=== PATIENT | male | born 1945 ===

== ENCOUNTER 2017-09-29 13:19 | Emergency (ER) | payer MEDICARE ==
[2017-09-29 13:20] VITALS: BMI 32.1
[2017-09-29 13:40] VITALS: RESP 18
--- NOTE | 2017-09-29 14:37 | ED PDOC ---
HPI: Abdomen Time Seen by Provider: 09/29/17 14:17 Chief Complaint (Nursing): GI Problem Chief Complaint (Provider): GI Problem History Per: Patient History/Exam Limitations: no limitations Onset/Duration Of Symptoms: Days (x8) Current Symptoms Are (Timing): Still Present Additional Complaint(s): 71 year old male with medical history of hypertension, hypercholesterolemia and diabetes, presents to the emergency department with a complaint of upper and periumbilical abdominal pain associated with lightheadedness and 10+ episodes of diarrhea throughout the day and night ongoing for 8 days. He denied any fever , chills, decreased appetite or bloody stools. Patient stated he used Imodium at home with no alleviation. Of note, colonoscopy was performed 5 years with negative findings. PMD: Kelton Gill MD Past Medical History Reviewed: Historical Data, Nursing Documentation, Vital Signs Vital Signs: Last Vital Signs Temp 97 F L 09/29/17 13:35 Pulse 61 09/29/17 13:35 Resp 18 09/29/17 13:35 BP 142/89 09/29/17 13:35 Pulse Ox 100 09/29/17 16:29 - Medical History PMH: Arthritis, Benign Prostatic Hyperplasia, Diabetes, Gall Bladder Disease, HTN, Hypercholesterolemia, TIA Denies: Asthma, Bronchitis, HIV, Chronic Kidney Disease - Surgical History Surgical History: Endoscopy Denies: No Surg Hx Other surgeries: prostate cancer - Family History Family History: States: CAD, Diabetes - Social History Current smoker - smoking cessation education provided: No Alcohol: Occasional Drugs: Denies - Home Medications Home Medications: Ambulatory Orders Medication Instructions Recorded Aspirin [Aspirin EC] 81 mg PO DAILY 02/14/15 Fenofibrate Nanocrystallized 145 mg PO DAILY 02/14/15 [Fenofibrate] Latanoprost [Xalatan] 1 drop EACHEYE HS 02/14/15 Lisinopril 20 mg PO DAILY 09/10/15 Metformin HCl [Glucophage] 500 mg PO DAILY 09/10/15 Tamsulosin HCl [Flomax] 0.4 mg PO DAILY 09/10/15 Atenolol [Tenormin] 50 mg PO DAILY 04/24/16 Omeprazole 20 mg PO DAILY 04/24/16 Oxybutynin Chloride [Ditropan Xl] 5 mg PO DAILY 04/24/16 Sucralfate [Carafate] 1 gm PO QID 04/24/16 Ciprofloxacin [Cipro] 1 tab PO BID #14 tab 09/29/17 Dicyclomine [Bentyl] 20 mg PO BID PRN #30 tab 09/29/17 Saccharomyces Boulardi [Florastor] 500 mg PO BID #28 cap 09/29/17 metroNIDAZOLE [Flagyl] 500 mg PO TID #30 tab 09/29/17 - Allergies Allergies/Adverse Reactions: Allergies Allergy/AdvReac Type Severity Reaction Status Date / Time No Known Allergies Allergy Verified 04/24/16 08:53 Review of Systems ROS Statement: Except As Marked, All Systems Reviewed And Found Negative Constitutional: Negative for: Fever, Chills Gastrointestinal: Positive for: Abdominal Pain (epigastric and periumbilical), Diarrhea. Negative for: Hematochezia, Other (decreased appetite) Neurological: Positive for: Dizziness (lightheaded) Physical Exam - Reviewed Nursing Documentation Reviewed: Yes Vital Signs Reviewed: Yes - Physical Exam Appears: Positive for: Non-toxic, No Acute Distress Head Exam: Positive for: ATRAUMATIC, NORMOCEPHALIC Skin: Positive for: Warm, Dry Eye Exam: Positive for: EOMI, PERRL ENT: Negative for: Pharyngeal Erythema, Tonsillar Exudate Neck: Positive for: Painless ROM, Supple Cardiovascular/Chest: Positive for: Regular Rate, Rhythm. Negative for: Murmur Respiratory: Positive for: Normal Breath Sounds. Negative for: Respiratory Distress Gastrointestinal/Abdominal: Positive for: Bowel Sounds (hyperactive), Tenderness (epigatric and lower quadrants on palpation). Negative for: Mass, Distended, Guarding, Rebound Back: Positive for: Normal Inspection. Negative for: Decreased ROM Extremity: Positive for: Normal ROM. Negative for: Deformity Lymphatic: Negative for: Adenopathy Neurologic/Psych: Positive for: Alert. Negative for: Motor/Sensory Deficits - Laboratory Results Result Diagrams: 09/29/17 15:00 09/29/17 15:00 - ECG O2 Sat by Pulse Oximetry: 100 (RA) Pulse Ox Interpretation: Normal Medical Decision Making Medical Decision Making: Initial Impression: Abdominal pain; diarrhea Differential Diagnosis: Colitis; diverticulitis; infectious diarrhea; obstruction; dehydration Initial Plan: * Type and screen * CT ABD/pelvis with IV contrast * CMP * Lipase * Urine dipstick * CBC * PTT * PT * Ova and parasite * Stool culture * Accu-check * Occult blood, stool ____ Time: 1527 --Labs: no significant abnormality Time: 1622 --CT ABD/pelvis FINDINGS: LOWER THORAX: A small hiatal hernia is identified. No pleural or pericardial effusion or infiltrate identified. LIVER: Prominent diffuse fatty infiltration liver is again appreciated with the liver borderline enlarged. No focal mass appreciable. GALLBLADDER AND BILE DUCTS: Unremarkable. PANCREAS: Unremarkable. No gross lesion or ductal dilatation. SPLEEN: Unremarkable. ADRENALS: Unremarkable. No mass. KIDNEYS AND URETERS: Two left renal cysts appear stable with a tiny lucency identified at the lower pole left kidney small to characterize. VASCULATURE: Unremarkable. No aortic aneurysm. BOWEL: The stomach is essentially collapsed. No bowel obstruction is appreciable and there is moderate fecal loading throughout the large bowel without left liquefaction of large bowel contents identified at this time. APPENDIX: Normal appendix. PERITONEUM: Unremarkable. No free fluid. No free air. LYMPH NODES: Unremarkable. No enlarged lymph nodes. BLADDER: Unremarkable. REPRODUCTIVE: Enlarged prostate gland identified. BONES: No acute fracture. OTHER FINDINGS: None. IMPRESSION: No definite acute abdominal or pelvic findings as discussed above. Prominent fatty infiltration liver is reiterated. No bowel obstruction, mesenteric edema , ascites or free intraperitoneal gas. Solid-appearing fecal matter is seen throughout various large-bowel segments without liquified contents in the lumen. Clinically correlate further nevertheless given history of diarrhea. Enlarged prostate gland identified. Two left renal simple cysts again identified. Labs with no emergent clinically significant abnormalities. DW pt findings and plan of care. Emilio prn. Cipro/Flagyl/FLorastor. F/u Dr Gill PMD and GI. Scribe Attestation: Documented by Nanda De Souza, acting as a scribe for Lolita Martinez MD. Provider Scribe Attestation: All medical record entries made by the Scribe were at my direction and personally dictated by me. I have reviewed the chart and agree that the record accurately reflects my personal performance of the history, physical exam, medical decision making, and the department course for this patient. I have also personally directed, reviewed, and agree with the discharge instructions and disposition. Disposition - Clinical Impression Clinical Impression: Abdominal pain, Diarrhea Counseled Patient/Family Regarding: Studies Performed, Diagnosis, Need For Followup, Rx Given - Disposition Referrals: Kelton Gill MD [Staff Provider] - 09/30/17 Disposition: Routine/Home Disposition Time: 16:45 Condition: GOOD Additional Instructions: VISITA ESPARZA DOCTOR POR LA MANANA A CHEQAR DE NUEVO Y POR UN REFERRAL DE SPECIALIST DE GASTROENTEROLOGO. MARIA DEL [facility] MEDICAM[facility] A RECETO REGRESA SI SIENTE PEOR. Prescriptions: Ciprofloxacin [Cipro] 1 tab PO BID #14 tab Dicyclomine [Bentyl] 20 mg PO BID PRN #30 tab PRN Reason: abdominal pain metroNIDAZOLE [Flagyl] 500 mg PO TID #30 tab Saccharomyces Boulardi [Florastor] 500 mg PO BID #28 cap Instructions: Stomach Ache and Stomach Upset, Diarrhea in Adolescents and Adults Print Language: GREENLANDIC
[2017-09-29] MEDS ORDERED: Iohexol 240 (50 ml) ONE (14:50)
[2017-09-29] MEDS ORDERED: Sodium Chloride 0.9% 500 ML IV STA (15:04)
[2017-09-29 15:11] LABS: BASO % 0.4 % (0.0-2.0); EOS # 0.2 K/uL (0.0-0.7); EOS % 3.4 % (0.0-4.0); HEMOGLOBIN 16.3 g/dL (12.0-18.0); LYMPH # 2.1 K/uL (1.0-4.3); LYMPH % 32.2 % (20.0-40.0); MEAN CELL VOLUME 90.9 fl (80.0-94.0); MEAN CORPUSCULAR HEMOGLOBIN 30.7 pg (27.0-31.0); MEAN CORPUSCULAR HGB CONC 33.7 g/dL (33.0-37.0); MEAN PLATELET VOLUME 8.6 fl (7.2-11.7); MONO # 0.5 K/uL (0.0-0.8); NEUT # 3.7 K/uL (1.8-7.0); NRBC % 0.1 % (0.0-0.0); RBC 5.32 Mil/uL (4.40-5.90); WHITE BLOOD COUNT 6.5 K/uL (4.8-10.8)
[2017-09-29 15:19] LABS: INR 1.1 (0.9-1.2); PARTIAL THROMBOPLASTIN TIME 33.8 Seconds (25.6-37.1); PROTHROMBIN TIME 11.7 Seconds (9.8-13.1)
[2017-09-29 15:28] LABS: ALB/GLOB RATIO 1.4 (1.0-2.1); ALBUMIN 4.6 g/dL (3.5-5.0); ALT/SGPT 45 U/L (21-72); AST/SGOT 18 U/L (17-59); BLOOD UREA NITROGEN 16 mg/dl (9-20); CALCIUM 10.2 mg/dL (8.4-10.2); GFR AFRICAN-AMERICAN > 60; GFR NON-AFRICAN AMERICAN > 60; LIPASE 201 U/L (23-300)
[2017-09-29] MEDS ORDERED: Sodium Chloride 0.9% 100 ML ONE (15:37)
[2017-09-29] MEDS ORDERED: Iohexol 300 100 ML IJ ONE (15:37)
--- NOTE | 2017-09-29 16:24 | CT ---
PROCEDURE: CT Abdomen and Pelvis with contrast HISTORY: abd pain and copious diarrhea COMPARISON: Upper abdomen and lung bases from prior CT angiogram chest 09/10/2015. TECHNIQUE: Contrast dose: Omnipaque 300, 95 cc Radiation dose: Total exam DLP = 885.80 mGy-cm. This CT exam was performed using one or more of the following dose reduction techniques: Automated exposure control, adjustment of the mA and/or kV according to patient size, and/or use of iterative reconstruction technique. FINDINGS: LOWER THORAX: A small hiatal hernia is identified. No pleural or pericardial effusion or infiltrate identified. LIVER: Prominent diffuse fatty infiltration liver is again appreciated with the liver borderline enlarged. No focal mass appreciable. GALLBLADDER AND BILE DUCTS: Unremarkable. PANCREAS: Unremarkable. No gross lesion or ductal dilatation. SPLEEN: Unremarkable. ADRENALS: Unremarkable. No mass. KIDNEYS AND URETERS: Two left renal cysts appear stable with a tiny lucency identified at the lower pole left kidney small to characterize. VASCULATURE: Unremarkable. No aortic aneurysm. BOWEL: The stomach is essentially collapsed. No bowel obstruction is appreciable and there is moderate fecal loading throughout the large bowel without left liquefaction of large bowel contents identified at this time. APPENDIX: Normal appendix. PERITONEUM: Unremarkable. No free fluid. No free air. LYMPH NODES: Unremarkable. No enlarged lymph nodes. BLADDER: Unremarkable. REPRODUCTIVE: Enlarged prostate gland identified. BONES: No acute fracture. OTHER FINDINGS: None. IMPRESSION: No definite acute abdominal or pelvic findings as discussed above. Prominent fatty infiltration liver is reiterated. No bowel obstruction, mesenteric edema, ascites or free intraperitoneal gas. Solid-appearing fecal matter is seen throughout various large-bowel segments without liquified contents in the lumen. Clinically correlate further nevertheless given history of diarrhea. Enlarged prostate gland identified. Two left renal simple cysts again identified.
[2017-09-29 17:13] VITALS: BP 140/78; PULSE 70; TEMP 98; O2SAT 99
== END 2017-09-29 18:00 | disposition home or self-care (01) ==
LOC: H.ER 13:19
DX: R19.7 Diarrhea, unspecified (principal); R10.9 Unspecified abdominal pain; I10 Essential (primary) hypertension; E78.00 Pure hypercholesterolemia, unspecified; Z86.73 Personal history of transient ischemic attack (TIA), and cerebral infarction without residual deficits; Z87.891 Personal history of nicotine dependence
CPT/HCPCS: 74177; 80053; 83690; 85025; 85610; 85730; 86850; 86900; 99284; J7040; Q9967